=== PATIENT | male | born 1950 | race Caucasian/White ===

== ENCOUNTER 2022-03-20 03:15 | Emergency (ER) | payer MEDICARE, OTHER | END 2022-03-20 05:28 | disposition home or self-care (01) | LOC: CSHERS 03:15 | DX: S01.01XA Laceration without foreign body of scalp, initial encounter (principal); I48.91 Unspecified atrial fibrillation; E11.9 Type 2 diabetes mellitus without complications; I10 Essential (primary) hypertension; E78.5 Hyperlipidemia, unspecified; Z79.01 Long term (current) use of anticoagulants; W18.09XA Striking against other object with subsequent fall, initial encounter | CPT/HCPCS: 12002; 70450; 72125 ==

== ENCOUNTER 2022-03-30 14:38 | Emergency (ER) | payer OTHER | END 2022-03-30 15:32 | disposition home or self-care (01) | LOC: CSHERS 14:38 | DX: S01.01XD Laceration without foreign body of scalp, subsequent encounter (principal); E11.9 Type 2 diabetes mellitus without complications; E78.5 Hyperlipidemia, unspecified; I10 Essential (primary) hypertension; F17.220 Nicotine dependence, chewing tobacco, uncomplicated; W19.XXXD Unspecified fall, subsequent encounter ==

== ENCOUNTER 2023-04-21 14:28 | Inpatient (IN) | payer OTHER ==
[2023-04-21 16:07] LABS: ALT (SGPT) 24 U/L (8-55); AST (SGOT) 62 U/L (5-34); Albumin 3.5 g/dL (3.4-4.8); Alkaline Phosphatase 63 U/L (40-110); Anion Gap 16 mmol/L (10-20); BUN (Urea Nitrogen) 16 mg/dL (8.4-25.7); Bilirubin, Total 2.5 mg/dL (0.2-1.2); Calc. Creatinine Clearance 0 mL/min (70-130); Calcium 8.7 mg/dL (7.8-10.44); Carbon Dioxide 27 mmol/L (23-31); Chloride 103 mmol/L (98-107); Estimated GFR 41; Globulin 2.4 g/dL (2.4-3.5); Glucose 152 mg/dL (83-110); Potassium 3.7 mmol/L (3.5-5.1); Protein, Total 5.9 g/dL (5.8-8.1); Sodium 142 mmol/L (136-145)
[2023-04-21 16:11] LABS: Acetaminophen Less than 10 mcg/mL (10.0-30.0); Alcohol Less than 10.0 mg/dL (Less than 10); Magnesium 1.7 mg/dL (1.6-2.6); Salicylate Less than 8.0 mg/dL (15.0-30.0)
[2023-04-21 16:14] LABS: #Basophils 0.1 10x3/uL (0.0-0.2); #Eosinphils 0.1 10x3/uL (0.0-0.5); #Monocytes 1.2 10x3/uL (0.0-1.1); #Neutrophils 13.3 10x3/uL (1.5-8.4); %Basophils 0.3 % (0.0-2.0); %Eosinophils 0.6 % (0.0-6.0); %Lymphocytes 7.7 % (18.0-47.0); %Monocytes 7.4 % (0.0-10.0); %Neutrophils 83.4 % (40.0-75.0); Hemoglobin 12.3 g/dL (13.5-17.5); Mean Corpuscular HGB CONC 33.2 g/dL (32.0-36.0); Mean Corpuscular Hemoglobin 30.1 pg (27.0-33.0); Mean Corpuscular Volume 90.5 fl (81.2-95.1); Mean Platelet Volume 10.9 fl (7.4-10.4); Platelet Count 260 10x3/uL (150-450); RBC Distribution Width 14.9 % (11.5-14.5); Red Blood Cell (RBC) Count 4.09 10x6/uL (4.32-5.72); White Blood Cell (WBC) Count 15.9 10x3/uL (3.5-10.5)
[2023-04-21 16:17] LABS: Troponin I 0.068 ng/mL (< 0.028)
[2023-04-21 17:44] LABS: Bilirubin Neg (Negative); Blood, Urine 250 (Negative); Clarity Clear (Clear); Glucose, Urine (Dipstick) Normal (Negative); Ketone, Urine 15 mg/dL (Negative); Leukocyte Negative (Negative); Nitrite Negative (Negative); Protein, Urine (Dipstick) 100 mg/dl (Neg-Trace); Specific Gravity, Urine 1.015 (1.005-1.030); Urobilinogen Normal mg/dL (Less than 2)
[2023-04-21] MEDS ORDERED: VANCOMYCIN 2 GRAM/400 ML BAG 2 GM in Premix 1 BAG IVPB SCH (17:45)
[2023-04-21] MEDS ORDERED: cefTRIAXone (ROCEPHIN) 2 GM VIAL ONE (17:49)
[2023-04-21] MEDS ORDERED: Ondansetron ODT 4 MG TAB PO PRN (17:52)
[2023-04-21] MEDS ORDERED: Ondansetron PF 4 MG/2 ML Vial IVP PRN (17:52)
[2023-04-21 18:17] LABS: CAUTI Indications for Culture Dysuria,urgency,freq; Squamous Epithelial 0-3 HPF (0-3)
[2023-04-21 18:19] LABS: Bacteria/HPF 2+ HPF (None Seen)
[2023-04-21 18:21] LABS: Urine Culture Reflex No No
[2023-04-21 18:25] LABS: Amphetamine Not Detected (NotDetected); Barbiturates Screen Not Detected (NotDetected); Benzodiazepine Screen Not Detected (NotDetected); Cocaine Metabolite Screen Not Detected (NotDetected); Methadone Not Detected (NotDetected); Methamphetamine Not Detected (NotDetected); Opiate Screen Not Detected (NotDetected); Oxycodone Screen Not Detected (NotDetected); Phencyclidine (PCP) Not Detected (NotDetected); THC/Cannabinoid Screen Not Detected (NotDetected); Tricyclic Screen Not Detected (NotDetected)
[2023-04-21] MEDS ORDERED: HumaLOG 300 UNITS/3 ML VIAL SC PRN (18:30)
[2023-04-21] MEDS ORDERED: Dextrose 50% Abboject 50 ML SYRINGE SLOW IVP PRN (18:30)
[2023-04-21] MEDS ORDERED: Dextrose 5% in Water 1,000 ML IV PRN (18:30)
[2023-04-21] MEDS ORDERED: Glucagon 1 MG/ML KIT IM PRN (18:30)
[2023-04-21 19:42] LABS: Troponin I 0.062 ng/mL (< 0.028)
[2023-04-21] MEDS: Nicotine 14 MG PATCH TD SCH (20:49)
[2023-04-21] MEDS: Sodium Chloride 0.9% 1,000 ML IV SCH (20:49)
[2023-04-21 21:33] VITALS: BMI 36.2
[2023-04-21] MEDS ORDERED: FLU VACC QS2023(65UP)/MF59C/PF 60 MCG/0.5 ML SYRINGE IM ONE (22:00)
[2023-04-21 22:33] LABS: Troponin I 0.072 ng/mL (< 0.028)
[2023-04-22] MEDS ORDERED: NIFEdipine XL 30 MG ER.TAB PO SCH (00:15)
[2023-04-22 04:41] LABS: #Basophils 0.1 10x3/uL (0.0-0.2); #Eosinphils 0.1 10x3/uL (0.0-0.5); #Monocytes 0.8 10x3/uL (0.0-1.1); #Neutrophils 9.2 10x3/uL (1.5-8.4); %Basophils 0.4 % (0.0-2.0); %Eosinophils 0.5 % (0.0-6.0); %Lymphocytes 10.6 % (18.0-47.0); %Monocytes 6.7 % (0.0-10.0); %Neutrophils 81.5 % (40.0-75.0); Hematocrit 33.6 % (38.8-50.0); Hemoglobin 11.8 g/dL (13.5-17.5); Mean Corpuscular HGB CONC 35.1 g/dL (32.0-36.0); Mean Corpuscular Volume 91.1 fl (81.2-95.1); Mean Platelet Volume 10.7 fl (7.4-10.4); Platelet Count 202 10x3/uL (150-450); RBC Distribution Width 14.8 % (11.5-14.5); Red Blood Cell (RBC) Count 3.69 10x6/uL (4.32-5.72); White Blood Cell (WBC) Count 11.3 10x3/uL (3.5-10.5)
[2023-04-22 04:44] LABS: Anion Gap 11 mmol/L (10-20); BUN (Urea Nitrogen) 14 mg/dL (8.4-25.7); CK (CPK) 3054 U/L (30-200); Calc. Creatinine Clearance 82 mL/min (70-130); Calcium 8.5 mg/dL (7.8-10.44); Carbon Dioxide 26 mmol/L (23-31); Chloride 106 mmol/L (98-107); Estimated GFR 56; Glucose 94 mg/dL (83-110); Potassium 3.4 mmol/L (3.5-5.1); Sodium 140 mmol/L (136-145)
[2023-04-22] MEDS: Sodium Chloride 0.9% 1,000 ML IV SCH (16:54)
[2023-04-22] MEDS: cefTRIAXone\\ROCEPHIN 1 GM in Sodium Chloride 0.9% 100 ML IVPB SCH (17:42)
[2023-04-22] MEDS ORDERED: Vancomycin 1.5 GRAM/300 ML BAG 1.5 GM in Premix 1 BAG IVPB SCH (18:00)
[2023-04-22 19:52] LABS: Hemoglobin A1c 6.8 % (4.0-6.0)
[2023-04-22] MEDS: Apixaban 5 MG TAB PO SCH (21:17)
[2023-04-22] MEDS: Nicotine 14 MG PATCH TD SCH (21:17)
[2023-04-23 05:28] LABS: #Eosinphils 0.2 10x3/uL (0.0-0.5); #Monocytes 0.6 10x3/uL (0.0-1.1); #Neutrophils 7.5 10x3/uL (1.5-8.4); %Basophils 0.4 % (0.0-2.0); %Eosinophils 2.5 % (0.0-6.0); %Lymphocytes 10.3 % (18.0-47.0); %Monocytes 6.7 % (0.0-10.0); %Neutrophils 79.5 % (40.0-75.0); Hematocrit 34.2 % (38.8-50.0); Hemoglobin 11.5 g/dL (13.5-17.5); Mean Corpuscular HGB CONC 33.6 g/dL (32.0-36.0); Mean Corpuscular Volume 89.3 fl (81.2-95.1); Mean Platelet Volume 10.3 fl (7.4-10.4); Platelet Count 210 10x3/uL (150-450); RBC Distribution Width 14.9 % (11.5-14.5); Red Blood Cell (RBC) Count 3.83 10x6/uL (4.32-5.72); White Blood Cell (WBC) Count 9.4 10x3/uL (3.5-10.5)
[2023-04-23 05:40] LABS: Anion Gap 11 mmol/L (10-20); BUN (Urea Nitrogen) 15 mg/dL (8.4-25.7); CK (CPK) 1086 U/L (30-200); Calc. Creatinine Clearance 75 mL/min (70-130); Calcium 8.4 mg/dL (7.8-10.44); Carbon Dioxide 25 mmol/L (23-31); Chloride 107 mmol/L (98-107); Estimated GFR 50; Glucose 129 mg/dL (83-110); Potassium 3.3 mmol/L (3.5-5.1); Sodium 140 mmol/L (136-145)
[2023-04-23] MEDS: Apixaban 5 MG TAB PO SCH ×2 (09:25→20:29)
[2023-04-23] MEDS: Potassium Chloride 20 MEQ in Premix 1 BAG IVPB SCH ×2 (14:06→16:44)
[2023-04-23 14:59] LABS: SARS-CoV-2 NAA Rapid Test Not Detected (NotDetected)
[2023-04-23] MEDS: cefTRIAXone\\ROCEPHIN 1 GM in Sodium Chloride 0.9% 100 ML IVPB SCH (20:28)
[2023-04-23] MEDS: Nicotine 14 MG PATCH TD SCH (20:29)
[2023-04-23] MEDS: Doxycycline 100 MG in Sodium Chloride 0.9% 100 ML IVPB SCH (21:31)
[2023-04-23] MEDS ORDERED: Amlodipine 5 MG TAB PO SCH (22:15)
[2023-04-24 03:59] LABS: #Basophils 0.1 10x3/uL (0.0-0.2); #Eosinphils 0.3 10x3/uL (0.0-0.5); #Monocytes 0.7 10x3/uL (0.0-1.1); #Neutrophils 6.2 10x3/uL (1.5-8.4); %Basophils 0.6 % (0.0-2.0); %Lymphocytes 11.2 % (18.0-47.0); %Monocytes 8.8 % (0.0-10.0); %Neutrophils 74.9 % (40.0-75.0); Hematocrit 33.9 % (38.8-50.0); Hemoglobin 11.3 g/dL (13.5-17.5); Mean Corpuscular HGB CONC 33.3 g/dL (32.0-36.0); Mean Corpuscular Hemoglobin 30.3 pg (27.0-33.0); Mean Corpuscular Volume 90.9 fl (81.2-95.1); Mean Platelet Volume 11.6 fl (7.4-10.4); Platelet Count 239 10x3/uL (150-450); RBC Distribution Width 14.6 % (11.5-14.5); Red Blood Cell (RBC) Count 3.73 10x6/uL (4.32-5.72); White Blood Cell (WBC) Count 8.2 10x3/uL (3.5-10.5)
[2023-04-24 04:22] LABS: Anion Gap 11 mmol/L (10-20); BUN (Urea Nitrogen) 14 mg/dL (8.4-25.7); CK (CPK) 509 U/L (30-200); Calc. Creatinine Clearance 96 mL/min (70-130); Calcium 8.6 mg/dL (7.8-10.44); Carbon Dioxide 24 mmol/L (23-31); Chloride 107 mmol/L (98-107); Estimated GFR 68; Glucose 144 mg/dL (83-110); Potassium 3.6 mmol/L (3.5-5.1); Sodium 138 mmol/L (136-145)
[2023-04-24] MEDS ORDERED: Losartan 25 MG TAB PO SCH (09:00)
[2023-04-24] MEDS ORDERED: ALFUZOSIN HCL 10 MG PO SCH (09:00)
[2023-04-24] MEDS ORDERED: NIFEdipine XL 30 MG ER.TAB PO SCH (09:00)
[2023-04-24] MEDS: Finasteride 5 MG TAB PO SCH (09:20)
[2023-04-24] MEDS: Atorvastatin Calcium 10 MG TAB PO SCH (09:20)
[2023-04-24] MEDS: Apixaban 5 MG TAB PO SCH ×2 (09:20→21:21)
[2023-04-24] MEDS: Doxycycline 100 MG in Sodium Chloride 0.9% 100 ML IVPB SCH ×2 (09:21→21:21)
[2023-04-24] MEDS: Allopurinol 100 MG TAB PO SCH (09:21)
[2023-04-24] MEDS: Nebivolol HCl 5 MG TAB PO SCH (09:21)
[2023-04-24] MEDS: cefTRIAXone\\ROCEPHIN 1 GM in Sodium Chloride 0.9% 100 ML IVPB SCH (18:09)
[2023-04-24] MEDS: NIFEdipine XL 30 MG ER.TAB PO SCH (21:20)
[2023-04-24] MEDS: Nicotine 14 MG PATCH TD SCH (21:20)
[2023-04-24] MEDS: Losartan 25 MG TAB PO SCH (21:20)
[2023-04-25 03:29] LABS: #Basophils 0.1 10x3/uL (0.0-0.2); #Eosinphils 0.3 10x3/uL (0.0-0.5); #Monocytes 0.8 10x3/uL (0.0-1.1); #Neutrophils 5.8 10x3/uL (1.5-8.4); %Basophils 0.6 % (0.0-2.0); %Eosinophils 3.2 % (0.0-6.0); %Lymphocytes 12.5 % (18.0-47.0); %Monocytes 10.6 % (0.0-10.0); %Neutrophils 72.6 % (40.0-75.0); Hematocrit 33.6 % (38.8-50.0); Hemoglobin 11.3 g/dL (13.5-17.5); Mean Corpuscular HGB CONC 33.6 g/dL (32.0-36.0); Mean Corpuscular Hemoglobin 30.3 pg (27.0-33.0); Mean Corpuscular Volume 90.1 fl (81.2-95.1); Mean Platelet Volume 11.3 fl (7.4-10.4); Platelet Count 247 10x3/uL (150-450); RBC Distribution Width 14.7 % (11.5-14.5); Red Blood Cell (RBC) Count 3.73 10x6/uL (4.32-5.72); White Blood Cell (WBC) Count 7.9 10x3/uL (3.5-10.5)
[2023-04-25 03:53] LABS: Anion Gap 10 mmol/L (10-20); BUN (Urea Nitrogen) 17 mg/dL (8.4-25.7); CK (CPK) 262 U/L (30-200); Calc. Creatinine Clearance 83 mL/min (70-130); Calcium 8.7 mg/dL (7.8-10.44); Carbon Dioxide 25 mmol/L (23-31); Chloride 105 mmol/L (98-107); Estimated GFR 57; Glucose 156 mg/dL (83-110); Potassium 3.5 mmol/L (3.5-5.1); Sodium 136 mmol/L (136-145)
[2023-04-25] MEDS: Atorvastatin Calcium 10 MG TAB PO SCH (08:45)
[2023-04-25] MEDS: Losartan 25 MG TAB PO SCH ×2 (08:45→21:30)
[2023-04-25] MEDS: Finasteride 5 MG TAB PO SCH (08:45)
[2023-04-25] MEDS: Doxycycline 100 MG in Sodium Chloride 0.9% 100 ML IVPB SCH ×2 (08:45→21:29)
[2023-04-25] MEDS: Apixaban 5 MG TAB PO SCH ×2 (08:45→21:30)
[2023-04-25] MEDS: NIFEdipine XL 30 MG ER.TAB PO SCH ×2 (08:45→21:30)
[2023-04-25] MEDS: Allopurinol 100 MG TAB PO SCH (08:46)
[2023-04-25] MEDS: Nebivolol HCl 5 MG TAB PO SCH (08:46)
[2023-04-25] MEDS: cefTRIAXone\\ROCEPHIN 1 GM in Sodium Chloride 0.9% 100 ML IVPB SCH (18:21)
[2023-04-25] MEDS: Nicotine 14 MG PATCH TD SCH (21:30)
[2023-04-26 04:42] LABS: #Basophils 0.1 10x3/uL (0.0-0.2); #Eosinphils 0.2 10x3/uL (0.0-0.5); #Monocytes 0.8 10x3/uL (0.0-1.1); #Neutrophils 7.3 10x3/uL (1.5-8.4); %Basophils 0.5 % (0.0-2.0); %Eosinophils 2.2 % (0.0-6.0); %Lymphocytes 10.7 % (18.0-47.0); %Monocytes 8.9 % (0.0-10.0); Hematocrit 33.5 % (38.8-50.0); Hemoglobin 11.4 g/dL (13.5-17.5); Mean Corpuscular Hemoglobin 30.7 pg (27.0-33.0); Mean Corpuscular Volume 90.3 fl (81.2-95.1); Mean Platelet Volume 11.9 fl (7.4-10.4); Platelet Count 210 10x3/uL (150-450); RBC Distribution Width 14.4 % (11.5-14.5); Red Blood Cell (RBC) Count 3.71 10x6/uL (4.32-5.72); White Blood Cell (WBC) Count 9.5 10x3/uL (3.5-10.5)
[2023-04-26 04:54] LABS: Anion Gap 13 mmol/L (10-20); BUN (Urea Nitrogen) 17 mg/dL (8.4-25.7); Calc. Creatinine Clearance 82 mL/min (70-130); Calcium 8.7 mg/dL (7.8-10.44); Carbon Dioxide 23 mmol/L (23-31); Chloride 106 mmol/L (98-107); Estimated GFR 56; Glucose 140 mg/dL (83-110); Potassium 3.7 mmol/L (3.5-5.1); Sodium 138 mmol/L (136-145)
[2023-04-26] MEDS: Acetaminophen 325 MG TAB PO PRN ×2 (08:25→13:10)
[2023-04-26] MEDS: Nebivolol HCl 5 MG TAB PO SCH (09:10)
[2023-04-26] MEDS: Finasteride 5 MG TAB PO SCH (09:10)
[2023-04-26] MEDS: Atorvastatin Calcium 10 MG TAB PO SCH (09:10)
[2023-04-26] MEDS: NIFEdipine XL 30 MG ER.TAB PO SCH ×2 (09:11→21:49)
[2023-04-26] MEDS: Losartan 25 MG TAB PO SCH ×2 (09:11→21:48)
[2023-04-26] MEDS: Apixaban 5 MG TAB PO SCH ×2 (09:11→21:49)
[2023-04-26] MEDS: Doxycycline 100 MG in Sodium Chloride 0.9% 100 ML IVPB SCH (09:11)
[2023-04-26] MEDS: Allopurinol 100 MG TAB PO SCH (09:11)
[2023-04-26] MEDS: traMADol HCl 50 MG TAB PO PRN (15:24)
[2023-04-26] MEDS: HumaLOG 300 UNITS/3 ML VIAL SC PRN (17:04)
[2023-04-26] MEDS: cefTRIAXone\\ROCEPHIN 1 GM in Sodium Chloride 0.9% 100 ML IVPB SCH (17:05)
[2023-04-26] MEDS: Doxycycline 100 MG CAP PO SCH (21:48)
[2023-04-26] MEDS: Nicotine 14 MG PATCH TD SCH (21:49)
[2023-04-27] MEDS: traMADol HCl 50 MG TAB PO PRN ×2 (00:07→10:31)
[2023-04-27] MEDS: Nebivolol HCl 5 MG TAB PO SCH (10:28)
[2023-04-27] MEDS: Losartan 25 MG TAB PO SCH ×2 (10:30→22:27)
[2023-04-27] MEDS: Dronedarone HCl 400 MG TAB PO SCH (10:30)
[2023-04-27] MEDS: Apixaban 5 MG TAB PO SCH ×2 (10:31→22:25)
[2023-04-27] MEDS: Finasteride 5 MG TAB PO SCH (10:31)
[2023-04-27] MEDS: Atorvastatin Calcium 10 MG TAB PO SCH (10:31)
[2023-04-27] MEDS: Allopurinol 100 MG TAB PO SCH (10:32)
[2023-04-27] MEDS: NIFEdipine XL 30 MG ER.TAB PO SCH ×2 (10:32→22:26)
[2023-04-27] MEDS: Doxycycline 100 MG CAP PO SCH ×2 (10:33→22:26)
[2023-04-27] MEDS: cefTRIAXone\\ROCEPHIN 1 GM in Sodium Chloride 0.9% 100 ML IVPB SCH (17:33)
[2023-04-27] MEDS: HumaLOG 300 UNITS/3 ML VIAL SC PRN (17:33)
[2023-04-27] MEDS: Furosemide 20 MG TAB PO SCH (22:25)
[2023-04-27] MEDS: Nicotine 14 MG PATCH TD SCH (22:27)
[2023-04-28 04:01] LABS: #Basophils 0.1 10x3/uL (0.0-0.2); #Eosinphils 0.3 10x3/uL (0.0-0.5); #Monocytes 0.7 10x3/uL (0.0-1.1); %Basophils 0.5 % (0.0-2.0); %Eosinophils 2.6 % (0.0-6.0); %Lymphocytes 8.8 % (18.0-47.0); %Monocytes 6.8 % (0.0-10.0); %Neutrophils 80.9 % (40.0-75.0); Hematocrit 31.2 % (38.8-50.0); Hemoglobin 10.6 g/dL (13.5-17.5); Mean Corpuscular Hemoglobin 30.6 pg (27.0-33.0); Mean Corpuscular Volume 90.2 fl (81.2-95.1); Mean Platelet Volume 11.5 fl (7.4-10.4); Platelet Count 275 10x3/uL (150-450); RBC Distribution Width 14.6 % (11.5-14.5); Red Blood Cell (RBC) Count 3.46 10x6/uL (4.32-5.72); White Blood Cell (WBC) Count 9.8 10x3/uL (3.5-10.5)
[2023-04-28 04:11] LABS: Anion Gap 12 mmol/L (10-20); BUN (Urea Nitrogen) 22 mg/dL (8.4-25.7); Calc. Creatinine Clearance 83 mL/min (70-130); Calcium 8.6 mg/dL (7.8-10.44); Carbon Dioxide 24 mmol/L (23-31); Chloride 105 mmol/L (98-107); Estimated GFR 56; Glucose 174 mg/dL (83-110); Potassium 3.6 mmol/L (3.5-5.1); Sodium 137 mmol/L (136-145)
[2023-04-28] MEDS: traMADol HCl 50 MG TAB PO PRN (05:04)
[2023-04-28] MEDS: Furosemide 20 MG TAB PO SCH ×2 (09:46→22:28)
[2023-04-28] MEDS: NIFEdipine XL 30 MG ER.TAB PO SCH ×2 (09:46→22:27)
[2023-04-28] MEDS: Finasteride 5 MG TAB PO SCH (09:46)
[2023-04-28] MEDS: Losartan 25 MG TAB PO SCH ×2 (09:46→22:28)
[2023-04-28] MEDS: Atorvastatin Calcium 10 MG TAB PO SCH (09:46)
[2023-04-28] MEDS: Apixaban 5 MG TAB PO SCH ×2 (09:46→22:27)
[2023-04-28] MEDS: Nebivolol HCl 5 MG TAB PO SCH (09:46)
[2023-04-28] MEDS: Dronedarone HCl 400 MG TAB PO SCH (09:46)
[2023-04-28] MEDS: Allopurinol 100 MG TAB PO SCH (09:51)
[2023-04-28] MEDS: Doxycycline 100 MG CAP PO SCH ×2 (09:51→22:37)
[2023-04-28] MEDS ORDERED: cefTRIAXone (ROCEPHIN) 1 GM VIAL ONE (22:30)
[2023-04-28] MEDS: cefTRIAXone\\ROCEPHIN 1 GM in Sodium Chloride 0.9% 100 ML IVPB SCH (22:31)
[2023-04-28] MEDS: Nicotine 14 MG PATCH TD SCH (22:49)
[2023-04-28] MEDS ORDERED: Nicotine 7 MG PATCH TD SCH (23:00)
[2023-04-29] MEDS: Nebivolol HCl 5 MG TAB PO SCH (09:13)
[2023-04-29] MEDS: NIFEdipine XL 30 MG ER.TAB PO SCH (09:13)
[2023-04-29] MEDS: Allopurinol 100 MG TAB PO SCH (09:14)
[2023-04-29] MEDS: Furosemide 20 MG TAB PO SCH (09:14)
[2023-04-29] MEDS: Atorvastatin Calcium 10 MG TAB PO SCH (09:14)
[2023-04-29] MEDS: Dronedarone HCl 400 MG TAB PO SCH (09:14)
[2023-04-29] MEDS: Finasteride 5 MG TAB PO SCH (09:14)
[2023-04-29] MEDS: Apixaban 5 MG TAB PO SCH (09:14)
[2023-04-29] MEDS: Losartan 25 MG TAB PO SCH (09:15)
[2023-04-29] MEDS: Doxycycline 100 MG CAP PO SCH (09:15)
[2023-04-29 12:55] VITALS: BP 172/74; TEMP 98.1
== END 2023-04-29 16:05 | DRG 871 ==
LOC: CSHERS 14:28 → CSHTELE 17:46
PROVIDERS: ADMIT Family Medicine; ATTEND Internal Medicine
PROC: 5A09457 Assistance with Respiratory Ventilation, 24-96 Consecutive Hours, Continuous Positive Airway Pressure (ICD-10-PCS; principal; 2023-04-24)
DX: A41.9 Sepsis, unspecified organism (principal); J96.01 Acute respiratory failure with hypoxia; C64.9 Malignant neoplasm of unspecified kidney, except renal pelvis; L03.115 Cellulitis of right lower limb; M62.82 Rhabdomyolysis; N17.9 Acute kidney failure, unspecified; Z66 Do not resuscitate; N39.0 Urinary tract infection, site not specified; N18.9 Chronic kidney disease, unspecified; E11.22 Type 2 diabetes mellitus with diabetic chronic kidney disease; I12.9 Hypertensive chronic kidney disease with stage 1 through stage 4 chronic kidney disease, or unspecified chronic kidney disease; E78.5 Hyperlipidemia, unspecified; E86.0 Dehydration; G31.9 Degenerative disease of nervous system, unspecified; I48.91 Unspecified atrial fibrillation; R77.8 Other specified abnormalities of plasma proteins; R19.7 Diarrhea, unspecified; Z11.52 Encounter for screening for COVID-19; Z90.5 Acquired absence of kidney; Z91.041 Radiographic dye allergy status; Z79.84 Long term (current) use of oral hypoglycemic drugs; Z79.4 Long term (current) use of insulin; Z79.899 Other long term (current) drug therapy; Z90.49 Acquired absence of other specified parts of digestive tract; Z95.0 Presence of cardiac pacemaker; Z98.890 Other specified postprocedural states; Z79.01 Long term (current) use of anticoagulants
CPT/HCPCS: 0241U; 36415; 36416; 70450; 71045; 72125; 74230; 80048; 80053; 80306; 80307; 81001; 82550; 83036; 83605; 83735; 84145; 84484; 85025; 87040; 87077; 87086; 87149; 87186; 93005; 93306; 94660; 94760; 94762; 96365; 96375; J0696; J1815; J3370; J3480; J3490; J7050

== ENCOUNTER 2024-02-28 12:50 | Outpatient (CLI) | payer OTHER | END 2024-02-28 12:51 | disposition home or self-care (01) | LOC: CSHULT 12:50 | PROVIDERS: ATTEND Family Medicine | DX: D17.21 Benign lipomatous neoplasm of skin and subcutaneous tissue of right arm (principal); R22.31 Localized swelling, mass and lump, right upper limb | CPT/HCPCS: 76999 ==